=== PATIENT | male | born 1990 | race Caucasian/White ===

== ENCOUNTER 2016-10-19 20:33 | Emergency (ER) | payer OTHER ==
--- NOTE | ~2016-10-19 | CT4 ---
[facility] A Service of [facility] RADIOLOGY TEXT RESULTS PATIENT: JUAN ARREDONDO LOCATION: [place] : [birth year] UNIT #: [id number] AGE: [address]: Juan Romero MD SEX: M ORDER DR: [id number] [facility] [address] [place], [place] [address] [id number] MR#: [id number] #: [id number] NAME: JUAN ARREDONDO : 1990 SEX: M STUDY DATE/TIME: 10/19/2016 23:18 UNIT: [facility] ROOM: STUDY DESCRIPTION: CT Abd and Pelv Wo Cont Attending Physician: Juan Romero M.D. Ordering Physician: Juan Romero M.D. Primary Care Physician: No Primary Care Physician MEDICAL IMAGING REPORT This report is preliminary unless electronic signature is present EXAM Abdomen and pelvis CT 10/19/16 23:18 hours. INDICATIONS Left side abdominal and groin pain for 1 week intermittently. Pain currently rates 8 out of 10. TECHNIQUE Axial noncontrast images were obtained through the abdomen and pelvis. Multiplanar reformats were obtained. This CT exam was performed with one or more of the following radiation dose reduction techniques: automatic exposure control, adjustment of mA and/or kV according to patient size, and iterative reconstruction. COMPARISON No comparison. FINDINGS Abdomen: The lung bases are clear. The gallbladder is normal. No renal or ureteral stones are seen. There is no hydronephrosis. Unenhanced solid organs are normal. The unopacified GI tract is normal. No free fluid is seen. Pelvis: There are no lower ureteral stones. The bladder is normal. No inguinal hernia is seen. The unopacified GI tract is grossly normal. IMPRESSION 1. Negative noncontrast CT abdomen pelvis. 2. No renal or ureteral stones. No hydronephrosis. 3. Grossly normal unopacified GI tract. 4. No evidence of an inguinal hernia. [facility] A Service of [facility] RADIOLOGY TEXT RESULTS PATIENT: JUAN ARREDONDO LOCATION: J[facility]ON : [birth year] UNIT #: [id number] AGE: [address]: Juan Romero MD SEX: M ORDER DR: Dictated by... Jorge Sandhu Jr., M.D. THIS IS AN ELECTRONICALLY VERIFIED REPORT Jorge Sandhu Jr., M.D. at 10/20/2016 9:14 PM [facility]be TD: 10/20/2016 09:53 JOB #: [id number] MEDICAL IMAGING REPORT Page 1 of 1 COPY
[2016-10-19 21:11] LABS: BASOPHIL# 0.1 X10e3 (0-0.3); BASOPHIL% 0.8 % (0-2.5); EOSINOPHIL# 0.1 X10e3 (0-0.7); EOSINOPHIL% 1.4 % (0.0-7.0); HEMATOCRIT 41.6 % (38.0-50.0); HEMOGLOBIN 14.2 gm/dL (13.0-16.0); LYMPHOCYTE# 2.7 X10e3 (1.0-3.5); LYMPHOCYTE% 39.3 % (17.0-45.0); MEAN CELL VOLUME 92.1 FL (83-96); MEAN CORPUSCULAR HEMOGLOBIN 31.4 PG (28-34); MEAN CORPUSCULAR HGB CONC 34.1 g/dL (30-36); MEAN PLATELET VOLUME 6.8 FL (6.5-11.5); MONOCYTE# 0.6 X10e3 (0-1.0); MONOCYTE% 9.2 % (3.0-12.0); NEUTROPHIL# 3.4 X10e3 (1.5-7.1); NEUTROPHIL% 49.3 % (40-75); PLATELET COUNT 292 X10e3 (140-420); RED BLOOD COUNT 4.51 X10e (3.90-5.60); RED CELL DISTRIBUTION WIDTH 13.2 % (11.0-15.5); WHITE BLOOD COUNT 6.9 X10e3 (4.0-10.5)
[2016-10-19 21:12] LABS: DIFF IND NO
[2016-10-19 21:47] LABS: ALBUMIN SERUM 4.3 g/dL (3.5-5.0); BILIRUBIN, DIRECT 0.1 mg/dL (0.0-0.2); BILIRUBIN,INDIRECT 0.3 mg/dL (0.0-0.9); BILIRUBIN,TOTAL 0.4 mg/dL (0.2-2.0); CALCIUM SERUM 8.5 mg/dL (8.4-10.2); CREATININE SERUM 0.6 mg/dL (0.6-1.4); GLOM FILT RATE Estimated 140.8 mL/min (>60); POTASSIUM 3.9 mmol/L (3.5-5.1); PROTEIN TOTAL SERUM 7.3 g/dL (6.0-8.3)
[2016-10-19 23:51] LABS: URINE SOURCE CLEAN CATCH
[2016-10-19 23:59] LABS: URINE APPEARANCE CLEAR; URINE BILIRUBIN NEG (NEG); URINE BLOOD NEG (NEG); URINE COLOR YELLOW; URINE GLUCOSE NEG (NEG); URINE KETONE NEG (NEG); URINE LEUKOCYTE ESTERASE NEG (NEG); URINE NITRATE NEG (NEG); URINE PH 6.5 (5-8); URINE PROTEIN TRACE (NEG); URINE SPECIFIC GRAVITY 1.034 (1.003-1.035)
[2016-10-20 00:06] LABS: CULTURE INDICATED? NO
== END 2016-10-20 01:00 | disposition home or self-care (01) ==
LOC: CED 20:33
PROVIDERS: Emergency Medicine
DX: S39.011A Strain of muscle, fascia and tendon of abdomen, initial encounter (principal); F17.210 Nicotine dependence, cigarettes, uncomplicated; X58.XXXA Exposure to other specified factors, initial encounter
CPT/HCPCS: 36415; 74176; 80048; 80076; 81003; 82150; 83690; 85025; 99284